=== PATIENT | female | born 1970 ===

== ENCOUNTER 2018-09-08 12:24 | Observation (INO) | payer MEDICAID, OTHER ==
--- NOTE | 2018-09-08 13:29 | ED PDOC ---
Arrival/HPI - General Historian: Patient - History of Present Illness Narrative History of Present Illness (Text): 09/08/18 13:20 Patient is a 47 year old female with a past medical history of diabetes and hypercholesterolemia presenting to the emergency room with chest pain. The pain started 30 minutes prior to arrival. She started to experience palpitations and a pressure-like sensation on the left side of her chest. The chest pain is rated a 10 out of 10 and is still present at time of examination. The pain radiates up the left side of her neck and towards her left shoulder. She has a headache and became nauseous shortly after the onset of chest pain. She also reports suprapubic pain for an unknown duration of time. Denies vaginal discharge, bleeding, dysuria or increased urinary frequency. She has never experienced chest pain like this before and denies any cardiac history in her family. Denies fevers, chills, vomiting, diarrhea, constipation or shortness of breath. Denies tobacco, alcohol or illicit drug use. PMD: Clinic in [place] Time/Duration: Prior to Arrival, 1/2 hour <Louie Hernández - Last Filed: 09/08/18 14:25> <Efra Diaz - Last Filed: 09/08/18 15:46> - General Chief Complaint: Chest Pain Time Seen by Provider: 09/08/18 12:52 Past Medical History - Provider Review Nursing Documentation Reviewed: Yes - Infectious Disease Hx of Infectious Diseases: None - Reproductive Menopause: No <Louie Hernández - Last Filed: 09/08/18 14:25> Family/Social History - Physician Review Nursing Documentation Reviewed: Yes Family/Social History: Unknown Family HX <Louie Hernández - Last Filed: 09/08/18 14:25> Allergies/Home Meds <Louie Hernández - Last Filed: 09/08/18 14:25> <Efra Diaz - Last Filed: 09/08/18 15:46> Allergies/Adverse Reactions: Allergies No Known Allergies Allergy (Verified 09/08/18 13:18) Review of Systems - Physician Review All systems were reviewed & negative as marked: Yes - Review of Systems Constitutional: Normal. absent: Fatigue, Fevers Eyes: Normal. absent: Vision Changes, Photophobia ENT: Normal Respiratory: Normal. absent: SOB Cardiovascular: Chest Pain, Palpitations. absent: Calf Pain, MEZA, Orthopnea, Syncope Gastrointestinal: Abdominal Pain (suprapubic). absent: Constipation, Diarrhea, Nausea, Vomiting Genitourinary Female: Normal. absent: Dysuria, Frequency, Hematuria, Vaginal Bleeding, Vaginal Discharge Musculoskeletal: Normal. absent: Back Pain Skin: Normal. absent: Rash Neurological: Headache. absent: Dizziness Endocrine: Normal Hemo/Lymphatic: Normal. absent: Adenopathy Psychiatric: Normal. absent: Anxiety <Louie Hernández - Last Filed: 09/08/18 14:25> Physical Exam Vital Signs Reviewed: Yes Vital Signs Temp Pulse Resp BP Pulse Ox 09/08/18 13:10 98.3 F 78 18 125/73 98 Temperature: Afebrile Blood Pressure: Normal Pulse: Regular Respiratory Rate: Normal Appearance: Positive for: Well-Appearing, Non-Toxic, Comfortable Pain Distress: None Mental Status: Positive for: Alert and Oriented X 3 - Systems Exam Head: Present: Atraumatic, Normocephalic Extroacular Muscles: Present: EOMI Conjunctiva: Present: Normal Mouth: Present: Moist Mucous Membranes Nose (External): Present: Atraumatic Nose (Internal): Present: No Active Bleeding, Moist Neck: Present: Normal Range of Motion. No: JVD Respiratory/Chest: Present: Clear to Auscultation, Good Air Exchange, Tender to Palpation (left sided). No: Respiratory Distress, Accessory Muscle Use, Wheezes, Rales, Rhonchi Cardiovascular: Present: Regular Rate and Rhythm, Normal S1, S2, Peripheal Pulses Present. No: Murmurs Abdomen: Present: Tenderness (suprapubic). No: Distention, Peritoneal Signs, Rebound, Guarding, McBurney's Point Tender, Rovsing's Sign Present Back: Present: Normal Inspection. No: CVA Tenderness, Midline Tenderness Upper Extremity: Present: Normal Inspection, NORMAL PULSES. No: Cyanosis, Edema Lower Extremity: Present: Normal Inspection, NORMAL PULSES. No: Edema, CALF TENDERNESS Neurological: Present: GCS=15, CN II-XII Intact, Speech Normal Skin: Present: Warm, Dry, Normal Color. No: Rashes Lymphatic: No: Cervical Adenopathy Psychiatric: Present: Alert, Oriented x 3, Normal Insight, Normal Concentration <Louie Hernández - Last Filed: 09/08/18 14:25> Vital Signs Temp Pulse Resp BP Pulse Ox 09/08/18 13:10 98.3 F 78 18 125/73 98 <Efra Diaz - Last Filed: 09/08/18 15:46> Medical Decision Making ED Course and Treatment: 09/08/18 13:34 Patient is a 47 year old female with a past medical history of diabetes and hypercholesterolemia presenting to the emergency room with chest pain and palpations starting 30 minutes prior to arrival. EKG - NSR @90bpm, normal axis, no acute ST segment elevations or depressions. Aspirin 325mg PO given Labs and CXR 09/08/18 14:25 Re-assessed patient. Chest pain is still present but mildly improved with aspirin. Labs are unremarkable. 1st Trop negative. Heart Score - 4 (2 for story, 1 for age and 1 for hx of DM/HLD) = mod risk Called and discussed case with Dr. Jessica Jamison (Hospitalist) in detail. Dr. Jessica Jamison has accepted patient onto hospitalist service for tele observation. Re-evaluation Time: 14:15 Reassessment Condition: Improving,but remains with symptoms - Lab Interpretations I have reviewed the lab results: Yes - RAD Interpretation Narrative RAD Interpretations (Text): 09/08/18 14:28 CXR - no active disease. Radiology Orders: 09/08/18 13:18 CHEST PORTABLE [RAD] Stat Tow Boat Captain: ED Physician - EKG Interpretation EKG Interpretation (Text): 09/08/18 14:29 EKG - NSR @90bpm, normal axis, no acute ST segment elevations or depressions - no prior EKG Interpreted by ED Physician: Yes Type: 12 lead EKG Comparison: No previous EKG avail. - Medication Orders Current Medication Orders: Aspirin (Aspirin) 325 mg PO STAT STA Stop: 09/08/18 13:19 <Louie Hernández - Last Filed: 09/08/18 14:25> - Lab Interpretations Lab Results: 09/08/18 13:45 09/08/18 13:45 Lab Results 09/08/18 13:45: Sodium 140, Potassium 3.9, Chloride 106, Carbon Dioxide 25, Anion Gap 14, BUN 5 L, Creatinine 0.5 L, Est GFR ( Amer) > 60, Est GFR (Non-Af Amer) > 60, Random Glucose 137 H, Calcium 9.5, Magnesium 2.0, Total Bilirubin 0.8, AST 28, ALT 32, Alkaline Phosphatase 102, Troponin I < 0.01, Total Protein 7.7, Albumin 4.3, Globulin 3.3, Albumin/Globulin Ratio 1.3, Lipase 54 09/08/18 13:45: Urine Color Yellow, Urine Appearance Turbid, Urine pH 6.0, Ur Specific [place] <= 1.005, Urine Protein Negative, Urine Glucose (UA) 250 H, Urine Ketones Negative, Urine Blood Large H, Urine Nitrate Negative, Urine Bili sands Negative, Urine Urobilinogen 0.2, Ur Leukocyte Esterase Trace H, Urine RBC 5 - 10, Urine WBC 1 - 3, Ur Epithelial Cells 1 - 3, Urine Bacteria Few 09/08/18 13:45: WBC 9.1, RBC 4.76, Hgb 15.2, Hct 42.6, MCV 89.5, MCH 31.9, MCHC 35.7, RDW 13.2, Plt Count 228, MPV 12.1 H, Gran % 65.9, Lymph % (Auto) 29.1, [place] % (Auto) 3.9, Eos % (Auto) 1.0 L, Baso % (Auto) 0.1, Gran # 5.99, Lymph # (Auto) 2.6, [place] # (Auto) 0.4, Eos # (Auto) 0.1, Baso # (Auto) 0.01 - RAD Interpretation Radiology Orders: 09/08/18 13:18 CHEST PORTABLE [RAD] Stat - Medication Orders Current Medication Orders: Discontinued Medications Aspirin (Aspirin) 325 mg PO STAT STA Stop: 09/08/18 13:19 Last Admin: 09/08/18 13:38 Dose: 325 mg <Efra Diaz - Last Filed: 09/08/18 15:46> - PA / FILLING MIXER / Resident Statement /DO has examined the patient and agrees with the treatment plan. (modrate risk CP pending trop. Neg 1st trop and no stemi on EKG) <Efra Diaz - Last Filed: 09/08/18 15:46> Disposition/Present on Arrival - Present on Arrival Any Indicators Present on Arrival: No History of DVT/PE: No History of Uncontrolled Diabetes: No Urinary Catheter: No History of Decub. Ulcer: No History Surgical Site Infection Following: None - Disposition Have Diagnosis and Disposition been Completed?: Yes Disposition Time: 14:30 Patient Plan: Observation, Telemetry <Louie Hernández - Last Filed: 09/08/18 14:25> <Efra Diaz - Last Filed: 09/08/18 15:46> - Disposition Diagnosis: Chest pain Disposition: HOSPITALIZED Condition: GUARDED Discharge Instructions (ExitCare): Chest Pain (ED) Referrals: PCP,NO [Primary Care Provider] - Follow up with primary Forms: [facility] ([place])
[2018-09-08 13:54] LABS: URINE BILIRUBIN NEGATIVE (NEGATIVE); URINE BLOOD LARGE (NEGATIVE); URINE GLUCOSE (UA) 250 mg/dL (NEGATIVE); URINE LEUKOCYTE ESTERASE TRACE Leu/uL (NEGATIVE); URINE PROTEIN NEGATIVE mg/dL (<30 mg/dL); URINE UROBILINOGEN 0.2 E.U./dL (<1 E.U./dL)
[2018-09-08 13:55] LABS: BASO # 0.01 K/mm3 (0.0-2.0); BASO % 0.1 % (0.0-3.0); EOS # 0.1 (0.0-0.7); GRAN # 5.99 (1.4-6.5); GRAN % 65.9 % (50.0-68.0); HEMOGLOBIN 15.2 g/dL (12.0-16.0); LYMPH # 2.6 (1.2-3.4); LYMPH % 29.1 % (22.0-35.0); MEAN CELL VOLUME 89.5 fl (80.0-105.0); MEAN CORPUSCULAR HEMOGLOBIN 31.9 pg (25.0-35.0); MEAN CORPUSCULAR HGB CONC 35.7 g/dl (31.0-37.0); MEAN PLATELET VOLUME 12.1 fl (7.0-11.0); MONO # 0.4 (0.1-0.6); MONO % 3.9 % (1.0-6.0); RBC 4.76 10^6/uL (3.5-6.1); RED CELL DISTRIBUTION WIDTH 13.2 % (11.5-14.5); WHITE BLOOD COUNT 9.1 10^3/ul (4.5-11.0)
[2018-09-08 13:56] LABS: URINE APPEARANCE TURBID (CLEAR); URINE COLOR YELLOW (YELLOW)
[2018-09-08 13:57] LABS: URINE BACTERIA FEW (NEG)
[2018-09-08 14:03] LABS: ALB/GLOB RATIO 1.3 (1.1-1.8); ALBUMIN 4.3 g/dL (3.0-4.8); ALT/SGPT 32 U/L (7-56); AST/SGOT 28 U/L (14-36); BLOOD UREA NITROGEN 5 mg/dL (7-21); CALCIUM 9.5 mg/dL (8.4-10.5); GFR NON-AFRICAN AMERICAN > 60; LIPASE 54 U/L (23-300)
--- NOTE | 2018-09-08 14:08 | RAD ---
Date of service: 09/08/2018 HISTORY: cp COMPARISON: No prior. FINDINGS: LUNGS: No active pulmonary disease. PLEURA: No significant pleural effusion identified, no pneumothorax apparent. CARDIOVASCULAR: Normal. OSSEOUS STRUCTURES: No significant abnormalities. VISUALIZED UPPER ABDOMEN: Normal. OTHER FINDINGS: None. IMPRESSION: No active disease.
[2018-09-08 14:14] LABS: TROPONIN I < 0.01 ng/mL
--- NOTE | 2018-09-08 15:10 | CARD ---
APPROVED REPORT Date of service: 09/08/2018 EKG Measurement Heart [id number] <Conclusion> Normal sinus rhythm Cannot rule out Anterior infarct, age undetermined Abnormal ECG
[2018-09-08 16:34] LABS: INR 1.02; PARTIAL THROMBOPLASTIN TIME 30.1 Seconds (25.1-36.5); PROTHROMBIN TIME 11.6 SECONDS (9.4-12.5)
--- NOTE | 2018-09-08 16:37 | CP.PCM.HP ---
<TorstenJefe - Last Filed: 09/08/18 16:38> History of Present Illness - History of Present Illness History of Present Illness: IM H&P for Dr Jamison CC: Chest pain x 15 days, new onset left shoulder neck pain today 47yo female with a PMHx of HLD and NIDDM who presented to ED with sudden exacerb ation of Chest pain with associated palpitations. She has had these symptoms for the past 15 days however was previously intermittent, however today it has intensified starting at 10am and became more constant rated at a 8/10. She describes it as substernal left sided CP that radiates to the neck and left arm with an intensity of 8/10. She was in her room resting and has not subsided since then but it has decreased in intensity (10/10 at home). There is nothing that makes it better and stress/anxiety happens to exacerbates it. Patient also described mild epigastric abdominal pain rated 5/10, nonradiating which she attributes to her gastritis. Patient also complains of moderate suprapubic pain and vaginal clot discharge since June, which she is being followed by her obgyn. She denies F/C, MARKS, palpitations, nausea, vomititng, diarrhea, constipation, dysuria, Allergies: NKDA PMHx: gastritis, arthritis, DM Medications: omeprazole, atorvastatin 40mg PO daily, metformin 100mg BID PSurgHx: obgyn related cannot recall exact procedure familyhx: denies Social hx: denies tobacco, alcohol, illicit drug use. Last job was in 2012 at a [employer] PMD: Pharmacy:[facility] on [address] [place] [address] Present on Admission - Present on Admission Any Indicators Present on Admission: No Review of Systems - Review of Systems Review of Systems: As per HPI otherwise negative Past Patient History - Infectious Disease Hx of Infectious Diseases: None - Past Social History Smoking Status: Unknown If Ever Smoked - CARDIAC Hx Cardiac Disorders: No Hx Hypertension: Yes - ENDOCRINE/METABOLIC Hx Diabetes Mellitus Type 2: Yes - GENITOURINARY/GYNECOLOGICAL Hx Genitourinary Disorders: No - PSYCHIATRIC Hx Substance Use: No - ANESTHESIA Hx Anesthesia: No Meds Allergies/Adverse Reactions: Allergies Allergy/AdvReac Type Severity Reaction Status Date / Time No Known Allergies Allergy Verified 09/08/18 13:18 Physical Exam - Constitutional Appears: No Acute Distress - Head Exam Head Exam: ATRAUMATIC, NORMAL INSPECTION, NORMOCEPHALIC - Eye Exam Eye Exam: EOMI, Normal appearance, PERRL Pupil Exam: NORMAL ACCOMODATION, PERRL - ENT Exam ENT Exam: Mucous Membranes Moist, Normal Exam - Neck Exam Neck exam: Positive for: Normal Inspection - Respiratory Exam Respiratory Exam: Chest Wall Tenderness, Clear to Auscultation Bilateral. absent: Wheezes - Cardiovascular Exam Cardiovascular Exam: REGULAR RHYTHM, +S1, +S2. absent: Systolic Murmur - GI/Abdominal Exam GI & Abdominal Exam: Normal Bowel Sounds, Soft, Tenderness (LUQ) - Extremities Exam Extremities exam: Positive for: normal inspection - Neurological Exam Neurological exam: Alert, CN II-XII Intact, Normal Gait, Oriented x3, Reflexes Normal - Psychiatric Exam Psychiatric exam: Normal Affect, Normal Mood - Skin Skin Exam: Dry, Intact, Normal Color, Warm Results - Vital Signs Recent Vital Signs: Last Vital Signs Temp 98.3 F 09/08/18 13:10 Pulse 78 09/08/18 13:10 Resp 18 09/08/18 13:10 BP 125/73 09/08/18 13:10 Pulse Ox 98 09/08/18 13:10 - Labs Result Diagrams: 09/08/18 13:45 09/08/18 13:45 Labs: Laboratory Results - last 24 hr 09/08/18 09/08/18 09/08/18 13:45 13:45 13:45 WBC 9.1 RBC 4.76 Hgb 15.2 Hct 42.6 MCV 89.5 MCH 31.9 MCHC 35.7 RDW 13.2 Plt Count 228 MPV 12.1 H Gran % 65.9 Lymph % (Auto) 29.1 [place] % (Auto) 3.9 Eos % (Auto) 1.0 L Baso % (Auto) 0.1 Gran # 5.99 Lymph # (Auto) 2.6 [place] # (Auto) 0.4 Eos # (Auto) 0.1 Baso # (Auto) 0.01 Sodium 140 Potassium 3.9 Chloride 106 Carbon Dioxide 25 Anion Gap 14 BUN 5 L Creatinine 0.5 L Est GFR ( Amer) > 60 Est GFR (Non-Af Amer) > 60 Random Glucose 137 H Calcium 9.5 Magnesium 2.0 Total Bilirubin 0.8 AST 28 ALT 32 Alkaline Phosphatase 102 Troponin I < 0.01 Total Protein 7.7 Albumin 4.3 Globulin 3.3 Albumin/Globulin Ratio 1.3 Lipase 54 Urine Color Yellow Urine Appearance Turbid Urine pH 6.0 Ur Specific [place] <= 1.005 Urine Protein Negative Urine Glucose (UA) 250 H Urine Ketones Negative Urine Blood Large H Urine Nitrate Negative Urine Bilirubin Negative Urine Urobilinogen 0.2 Ur Leukocyte Esterase Trace H Urine RBC 5 - 10 Urine WBC 1 - 3 Ur Epithelial Cells 1 - 3 Urine Bacteria Few Assessment & Plan - Assessment and Plan (Free Text) Assessment: 47yo female with a PMHx of HLD and NIDDM who presented to ED with sudden exacerbation of Chest pain with associated palpitations admitted to tele to rule out ACS. Chest Pains r/o ACS - Trend trops, negative x1 - trend ekg - tsh - monitor hemodynamics, normotensive currently - Cardiology Consult, Dr. Olivas - Lipid profile - fu A1c Abdominal Pain - CT abd - Heart healthy diet - PPI - HLD - fu lipid profile - lipitor 40 mg home med continued NIDDM - metformin 100 BID hold - fu a1c - accuchecks - low sliding scale GI/DVT ppx Seen reviewed and discussed with attending, Dr. Jamison <Virginia Jamison R - Last Filed: 09/08/18 17:34> Results - Vital Signs Recent Vital Signs: Last Vital Signs Temp 98.3 F 09/08/18 13:10 Pulse 78 09/08/18 13:10 Resp 18 09/08/18 13:10 BP 125/73 09/08/18 13:10 Pulse Ox 98 09/08/18 13:10 - Labs Result Diagrams: 09/08/18 13:45 09/08/18 13:45 Labs: Laboratory Results - last 24 hr 09/08/18 09/08/18 09/08/18 13:45 13:45 13:45 WBC 9.1 RBC 4.76 Hgb 15.2 Hct 42.6 MCV 89.5 MCH 31.9 MCHC 35.7 RDW 13.2 Plt Count 228 MPV 12.1 H Gran % 65.9 Lymph % (Auto) 29.1 [place] % (Auto) 3.9 Eos % (Auto) 1.0 L Baso % (Auto) 0.1 Gran # 5.99 Lymph # (Auto) 2.6 [place] # (Auto) 0.4 Eos # (Auto) 0.1 Baso # (Auto) 0.01 PT INR APTT Sodium 140 Potassium 3.9 Chloride 106 Carbon Dioxide 25 Anion Gap 14 BUN 5 L Creatinine 0.5 L Est GFR ( Amer) > 60 Est GFR (Non-Af Amer) > 60 Random Glucose 137 H Calcium 9.5 Phosphorus Magnesium 2.0 Total Bilirubin 0.8 AST 28 ALT 32 Alkaline Phosphatase 102 Troponin I < 0.01 Total Protein 7.7 Albumin 4.3 Globulin 3.3 Albumin/Globulin Ratio 1.3 Triglycerides Cholesterol LDL Cholesterol Direct HDL Cholesterol Lipase 54 TSH 3rd Generation Urine Color Yellow Urine Appearance Turbid Urine pH 6.0 Ur Specific [place] <= 1.005 Urine Protein Negative Urine Glucose (UA) 250 H Urine Ketones Negative Urine Blood Large H Urine Nitrate Negative Urine Bilirubin Negative Urine Urobilinogen 0.2 Ur Leukocyte Esterase Trace H Urine RBC 5 - 10 Urine WBC 1 - 3 Ur Epithelial Cells 1 - 3 Urine Bacteria Few 09/08/18 09/08/18 09/08/18 13:45 13:45 13:45 WBC RBC Hgb Hct MCV MCH MCHC RDW Plt Count MPV Gran % Lymph % (Auto) [place] % (Auto) Eos % (Auto) Baso % (Auto) Gran # Lymph # (Auto) [place] # (Auto) Eos # (Auto) Baso # (Auto) PT 11.6 INR 1.02 APTT 30.1 Sodium Potassium Chloride Carbon Dioxide Anion Gap BUN Creatinine Est GFR ( Amer) Est GFR (Non-Af Amer) Random Glucose Calcium Phosphorus 4.6 H Magnesium Total Bilirubin AST ALT Alkaline Phosphatase Troponin I Total Protein Albumin Globulin Albumin/Globulin Ratio Triglycerides 438 H Cholesterol 174 LDL Cholesterol Direct 67 HDL Cholesterol 41 Lipase TSH 3rd Generation 1.50 Urine Color Urine Appearance Urine pH Ur Specific [place] Urine Protein Urine Glucose (UA) Urine Ketones Urine Blood Urine Nitrate Urine Bilirubin Urine Urobilinogen Ur Leukocyte Esterase Urine RBC Urine WBC Ur Epithelial Cells Urine Bacteria Attending/Attestation - Attestation I have personally seen and examined this patient.: Yes I have fully participated in the care of the patient.: Yes I have reviewed all pertinent clinical information: Yes Notes (Text): Patient seen and examined by me with resident at 3:30PM with resident. Case including HPI, physical exam, and assessment and plan discussed with resident. Agree with above with following additions/corrections. Patient is Citizen Of [place]-speaking. Trained weight control engineer used. Patient is a 47-year-old female past medical history significant for type 2 diabetes, gastritis, hyperlipidemia, and dysfunctional uterine bleeding that presents to the emergency room with chest pain. Patient states that she has been having chest pain for approximately 15 days now. She states that the pain was intermittent. Pain and left-sided chest. Patient states that today the pain became constant and radiated into her left arm and neck. Patient states that the pain is worsened when she pushes on the area. No associated shortness of breath. No diaphoresis. Patient also complains of upper abdominal pain. She states that it is always there and she has a history of gastritis. She states she was supposed to follow-up with her machine hose cutter in July but was unable to do so. Patient states that she always has nausea after eating as well. She states that she has had some "soft and mucousy"bowel movement was the past few days. She states that she has some abdominal cramping prior to having bowel movements. Last bowel movement was this morning. No headaches or change in vision. Patient states he sometimes has dizziness when she sits up or stands up. No fevers or chills. No vomiting. No dysuria. Patient states that she has been having constant vaginal bleeding for the past 3 months and is following with her chemical laboratory chief for this. 12 point review of systems reviewed by me. Please see above HPI. All other systems negative. Family history. Mother of "ulcer". Father alive and healthy. Physical exam: Gen: Awake and alert lying in bed in no acute distress HEENT: Normocephalic, atraumatic. Extraocular muscles intact, pupils equal reactive. No scleral icterus. No pharyngeal erythema or exudate appreciated. Oropharynx is pink and moist. Neck is supple. Hearing grossly intact. Nose ext ernally unremarkable. Cardiovascular: Normal rhythm. Normal S1, S2. No murmurs, rubs, or gallops maksim reciated Pulmonary: Normal respiratory effort. No rhonchi, rales, or wheezing appreciated. Gastrointestinal: Soft, nondistended. Positive generalized mild tenderness with deep palpation. Positive bowel sounds all 4 quadrants, no guarding. Musculoskeletal: Moves all extremities. No calf tenderness. No edema appreciated. Positive left anterior chest wall tenderness with palpation. Central nervous system: AAO x 3. CN2-12 grossly intact. 5 out of 5 muscle strength all extremities. Dermatologic: Skin warm and dry. Assessment and plan: Patient is a 47-year-old female past medical history signi ficant for type 2 diabetes, gastritis, hyperlipidemia, and dysfunctional uterine bleeding that presents to the emergency room with chest pain. 1. Chest pain. Likely musculoskeletal. Will rule out ACS. Follow up serial troponins. Follow-up hemoglobin A1c and TSH. Consult cardiology, follow-up recommendations. Monitor on telemetry. Continue home Lipitor. Will start on aspirin. 2. Type 2 diabetes. Patient takes metformin at home. Started on insulin sliding scale. Follow up hemoglobin A1c. Monitor Accu-Cheks. 3. Hyperlipidemia. Continue atorvastatin. 4. GERD. Continue Protonix. 5. Abdominal pain. Likely Secondary to history of gastritis. Continue Protonix. We will check CT abdomen and pelvis. 6. GI and DVT prophylaxis. Protonix and subcutaneous heparin. 7. Patient is a full code Case was discussed in detail with patient and Citizen Of [place] regarding current diagnosis and treatment plan. All questions answered.
[2018-09-08] MEDS: Insulin Lispro (humaLOG) LOW Coverage SC SCH ×2 (17:55→22:05)
--- NOTE | 2018-09-08 18:10 | CT ---
Date of service: 2018-09-08 17:30:57 PROCEDURE: CT Abdomen without intravenous contrast HISTORY: LUQ abdominal pain/loose stools COMPARISON: Not available TECHNIQUE: Axial images of the abdomen from lung bases to iliac crest without intravenous contrast enhancement. Coronal and sagittal reformats generated. Radiation dose: Total exam DLP = mGy-cm. This CT exam was performed using one or more of the following dose reduction techniques: Automated exposure control, adjustment of the mA and/or kV according to patient size, and/or use of iterative reconstruction technique. Contrast dose: 0 Radiation dose: Total exam DLP = 252.42 mGy-cm. FINDINGS: LOWER THORAX: No infiltrate. 5 mm perifissural nodule along inferior aspect of the minor fissure, likely an intrapulmonary lymph node. No follow-up required. No other mass identified. LIVER: Unremarkable. No gross lesion or ductal dilatation. GALLBLADDER AND BILE DUCTS: Unremarkable. PANCREAS: Unremarkable. No gross lesion or ductal dilatation. SPLEEN: Unremarkable. ADRENALS: Unremarkable. No mass. KIDNEYS AND URETERS: Unremarkable. No hydronephrosis. No solid mass. VASCULATURE: Unremarkable. No aortic aneurysm. BOWEL: Unremarkable. No obstruction. No gross mural thickening. APPENDIX: Visualized portions of the appendix are unremarkable. Only partially included in this examination. PERITONEUM: Unremarkable. No free fluid. No free air. LYMPH NODES: Unremarkable. No enlarged lymph nodes. BONES: No acute fracture. OTHER FINDINGS: None. IMPRESSION: No significant abnormality. Incidental perifissural 5 mm nodule along minor fissure. No follow-up required. Otherwise unremarkable.
[2018-09-08 22:21] VITALS: BMI 24.0
[2018-09-08] MEDS ORDERED: Pneumococcal 23-Valent Vaccine IM ONE (22:21)
[2018-09-08] MEDS ORDERED: Influenza Vaccine 60 mcg/0.5 mL SYR (4YR UP) IM ONE (22:21)
[2018-09-09] MEDS: Insulin Lispro (humaLOG) LOW Coverage SC SCH ×4 (08:26→22:24)
[2018-09-09 08:29] LABS: BASO # 0.02 K/mm3 (0.0-2.0); BASO % 0.2 % (0.0-3.0); EOS # 0.2 (0.0-0.7); EOS % 2.3 % (1.5-5.0); GRAN # 3.39 (1.4-6.5); GRAN % 41.9 % (50.0-68.0); HEMOGLOBIN 14.8 g/dL (12.0-16.0); LYMPH # 4.1 (1.2-3.4); MEAN CELL VOLUME 89.9 fl (80.0-105.0); MEAN CORPUSCULAR HEMOGLOBIN 31.8 pg (25.0-35.0); MEAN CORPUSCULAR HGB CONC 35.4 g/dl (31.0-37.0); MEAN PLATELET VOLUME 12.7 fl (7.0-11.0); MONO # 0.4 (0.1-0.6); MONO % 4.6 % (1.0-6.0); RBC 4.65 10^6/uL (3.5-6.1); RED CELL DISTRIBUTION WIDTH 13.7 % (11.5-14.5); WHITE BLOOD COUNT 8.1 10^3/ul (4.5-11.0)
[2018-09-09 08:54] LABS: ALB/GLOB RATIO 1.2 (1.1-1.8); ALBUMIN 3.9 g/dL (3.0-4.8); ALT/SGPT 33 U/L (7-56); AST/SGOT 27 U/L (14-36); BLOOD UREA NITROGEN 10 mg/dL (7-21); CALCIUM 9.3 mg/dL (8.4-10.5); GFR NON-AFRICAN AMERICAN > 60
[2018-09-09] MEDS: Pantoprazole 40 mg EC Tab PO SCH (09:19)
--- NOTE | 2018-09-09 11:37 | CARD ---
APPROVED REPORT Date of service: 09/09/2018 EKG Measurement Heart [id number] <Conclusion> Normal sinus rhythm Normal ECG
--- NOTE | 2018-09-09 16:43 | CP.PCM.PN ---
Subjective - Date & Time of Evaluation Date of Evaluation: 09/09/18 Time of Evaluation: 16:42 - Subjective Subjective: PGY-[address] Benitez No acute events noted overnight. Patient stated her chest pain has improved. She is now tender to palpation only. Otherwise did not offer any complaints. She was told about her diabetes and to watch her sugars. Objective - Vital Signs/Intake and Output Vital Signs (last 24 hours): Temp Pulse Resp BP Pulse Ox 98.3 F 90 20 99/58 L 96 09/09/18 06:00 09/09/18 14:00 09/09/18 06:00 09/09/18 06:00 09/09/18 06:00 Intake and Output: 09/09/18 09/09/18 06:59 18:59 Intake Total 240 Balance 240 - Medications Medications: Current Medications Aspirin (Ecotrin) 81 mg PO DAILY [facility] Last Admin: 09/09/18 09:19 Dose: 81 mg Atorvastatin Calcium (Lipitor) 40 mg PO DAILY [facility] Last Admin: 09/09/18 09:19 Dose: 40 mg Heparin Sodium (Porcine) (Heparin) 5,000 units SC Q8H [facility]; Protocol Last Admin: 09/09/18 08:29 Dose: 5,000 units Ibuprofen (Motrin Tab) 400 mg PO Q6H PRN PRN Reason: Pain, moderate (4-7) Last Admin: 09/08/18 20:27 Dose: 400 mg Insulin Human Lispro (Humalog Low) 0 units SC ACHS [facility]; Protocol Last Admin: 09/09/18 12:14 Dose: 2 unit Pantoprazole Sodium (Protonix Ec Tab) 40 mg PO DAILY [facility] Last Admin: 09/09/18 09:19 Dose: 40 mg - Labs Labs: 09/09/18 08:00 09/09/18 08:00 PT 11.6 SECONDS (9.4-12.5) 09/08/18 13:45 INR 1.02 09/08/18 13:45 APTT 30.1 Seconds (25.1-36.5) 09/08/18 13:45 - Additional Findings Additional findings: - Constitutional Appears: No Acute Distress - Head Exam Head Exam: ATRAUMATIC, NORMAL INSPECTION, NORMOCEPHALIC - Eye Exam Eye Exam: EOMI, Normal appearance, PERRL Pupil Exam: NORMAL ACCOMODATION, PERRL - ENT Exam ENT Exam: Mucous Membranes Moist, Normal Exam - Neck Exam Neck exam: Positive for: Normal Inspection - Respiratory Exam Respiratory Exam: Chest Wall Tenderness, Clear to Auscultation Bilateral. absent: Wheezes - Cardiovascular Exam Cardiovascular Exam: REGULAR RHYTHM, +S1, +S2. absent: Systolic Murmur - GI/Abdominal Exam GI & Abdominal Exam: Normal Bowel Sounds, Soft, Tenderness (LUQ) - Extremities Exam Extremities exam: Positive for: normal inspection - Neurological Exam Neurological exam: Alert, CN II-XII Intact, Normal Gait, Oriented x3, Reflexes Normal - Psychiatric Exam Psychiatric exam: Normal Affect, Normal Mood - Skin Skin Exam: Dry, Intact, Normal Color, Warm Assessment and Plan - Assessment and Plan (Free Text) Plan: 47yo female with a PMHx of HLD and NIDDM who presented to ED with sudden exacerbation of Chest pain with associated palpitations admitted to tele to rule out ACS. Chest Pains r/o ACS - likely musculoskelatal - trops, negative x3 - ekg nsr, normal rate - tsh normal - monitor hemodynamics, normotensive currently - Cardiology Consult, Dr. Olivas - Lipid profile normal with exception of triglycerides 438 - ibuprofen 400mg po q6h prn for pain Abdominal Pain - CT abd w/o contrast * no significant abnormality, incidental perifissural 5mm nodule along minor fissure - Heart healthy diet - PPI - protonix 40mg po qd HLD - Lipid profile normal with exception of triglycerides 438 - lipitor 40 mg home med continued NIDDM - metformin 100 BID hold - A1c 7.5 - accuchecks - low sliding scale GI/DVT ppx Seen reviewed and discussed with attending, Dr. Benitez
[2018-09-09] MEDS ORDERED: Potassium Chloride 20 mEq ER Tab PO ONE (17:49)
[2018-09-10] MEDS: Insulin Lispro (humaLOG) LOW Coverage SC SCH ×2 (08:08→12:23)
[2018-09-10 08:34] LABS: BASO # 0.02 K/mm3 (0.0-2.0); BASO % 0.3 % (0.0-3.0); EOS # 0.1 (0.0-0.7); EOS % 1.8 % (1.5-5.0); GRAN # 3.5 (1.4-6.5); GRAN % 45.2 % (50.0-68.0); HEMOGLOBIN 14.7 g/dL (12.0-16.0); LYMPH # 3.7 (1.2-3.4); LYMPH % 47.8 % (22.0-35.0); MEAN CORPUSCULAR HEMOGLOBIN 31.2 pg (25.0-35.0); MEAN CORPUSCULAR HGB CONC 34.7 g/dl (31.0-37.0); MEAN PLATELET VOLUME 12.5 fl (7.0-11.0); MONO # 0.4 (0.1-0.6); MONO % 4.9 % (1.0-6.0); RBC 4.71 10^6/uL (3.5-6.1); RED CELL DISTRIBUTION WIDTH 13.4 % (11.5-14.5); WHITE BLOOD COUNT 7.7 10^3/ul (4.5-11.0)
[2018-09-10 08:44] VITALS: BP 98/58; RESP 20; TEMP 98.2; O2SAT 98
[2018-09-10 09:03] LABS: ALB/GLOB RATIO 1.3 (1.1-1.8); ALT/SGPT 33 U/L (7-56); AST/SGOT 24 U/L (14-36); BLOOD UREA NITROGEN 13 mg/dL (7-21); CALCIUM 9.1 mg/dL (8.4-10.5); GFR NON-AFRICAN AMERICAN > 60
[2018-09-10] MEDS: Pantoprazole 40 mg EC Tab PO SCH (09:09)
[2018-09-10 10:34] VITALS: PULSE 79
--- NOTE | 2018-09-10 22:05 | CP.PCM.DIS ---
Provider - Provider Date of Admission: 09/08/18 14:25 Attending physician: Virginia Jamison DO Primary care physician: NO PRIMARY CARE PROVIDER Consults: Cardio: Dr. Olivas Time Spent in preparation of Discharge (in minutes): 49 Diagnosis - Discharge Diagnosis (1) UTI (urinary tract infection) Status: Acute Hospital Course - Lab Results Lab Results: Micro Results 09/08/18 16:08 Urine,Clean Catch Urine Culture - Final Escherichia Coli Beta Hemolytic Strep Group B Most Recent Lab Values WBC 7.7 10^3/ul (4.5-11.0) 09/10/18 07:00 RBC 4.71 10^6/uL (3.5-6.1) 09/10/18 07:00 Hgb 14.7 g/dL (12.0-16.0) 09/10/18 07:00 Hct 42.4 % (36.0-48.0) 09/10/18 07:00 MCV 90.0 fl (80.0-105.0) 09/10/18 07:00 MCH 31.2 pg (25.0-35.0) 09/10/18 07:00 MCHC 34.7 g/dl (31.0-37.0) 09/10/18 07:00 RDW 13.4 % (11.5-14.5) 09/10/18 07:00 Plt Count 226 10^3/uL (120.0-450.0) 09/10/18 07:00 MPV 12.5 fl (7.0-11.0) H 09/10/18 07:00 Gran % 45.2 % (50.0-68.0) L 09/10/18 07:00 Lymph % (Auto) 47.8 % (22.0-35.0) H 09/10/18 07:00 Bryan % (Auto) 4.9 % (1.0-6.0) 09/10/18 07:00 Eos % (Auto) 1.8 % (1.5-5.0) 09/10/18 07:00 Baso % (Auto) 0.3 % (0.0-3.0) 09/10/18 07:00 Gran # 3.50 (1.4-6.5) 09/10/18 07:00 Lymph # (Auto) 3.7 (1.2-3.4) H 09/10/18 07:00 Bryan # (Auto) 0.4 (0.1-0.6) 09/10/18 07:00 Eos # (Auto) 0.1 (0.0-0.7) 09/10/18 07:00 Baso # (Auto) 0.02 K/mm3 (0.0-2.0) 09/10/18 07:00 PT 11.6 SECONDS (9.4-12.5) 09/08/18 13:45 INR 1.02 09/08/18 13:45 APTT 30.1 Seconds (25.1-36.5) 09/08/18 13:45 Sodium 139 mmol/L (132-148) 09/10/18 07:00 Potassium 3.9 mmol/L (3.6-5.0) 09/10/18 07:00 Chloride 106 mmol/L (98-107) 09/10/18 07:00 Carbon Dioxide 24 mmol/L (21-33) 09/10/18 07:00 Anion Gap 13 (10-20) 09/10/18 07:00 BUN 13 mg/dL (7-21) 09/10/18 07:00 Creatinine 0.6 mg/dl (0.7-1.2) L 09/10/18 07:00 Est GFR ( Amer) > 60 09/10/18 07:00 Est GFR (Non-Af Amer) > 60 09/10/18 07:00 POC Glucose (mg/dL) 196 mg/dL (65-110) H 09/10/18 11:33 Random Glucose 168 mg/dL (70-110) H 09/10/18 07:00 Hemoglobin A1c 7.5 % (4.2-6.5) H 09/08/18 13:45 Calcium 9.1 mg/dL (8.4-10.5) 09/10/18 07:00 Phosphorus 4.6 mg/dL (2.5-4.5) H 09/08/18 13:45 Magnesium 2.0 mg/dL (1.7-2.2) 09/08/18 13:45 Total Bilirubin 1.0 mg/dL (0.2-1.3) 09/10/18 07:00 AST 24 U/L (14-36) 09/10/18 07:00 ALT 33 U/L (7-56) 09/10/18 07:00 Alkaline Phosphatase 91 U/L (38-126) 09/10/18 07:00 Troponin I < 0.01 ng/mL 09/09/18 02:25 Total Protein 7.0 g/dL (5.8-8.3) 09/10/18 07:00 Albumin 4.0 g/dL (3.0-4.8) 09/10/18 07:00 Globulin 3.1 gm/dL 09/10/18 07:00 Albumin/Globulin Ratio 1.3 (1.1-1.8) 09/10/18 07:00 Triglycerides 438 mg/dL (35-160) H 09/08/18 13:45 Cholesterol 174 mg/dL (130-200) 09/08/18 13:45 LDL Cholesterol Direct 67 mg/dL (0-129) 09/08/18 13:45 HDL Cholesterol 41 mg/dL (29-60) 09/08/18 13:45 Lipase 54 U/L (23-300) 09/08/18 13:45 TSH 3rd Generation 1.50 mIU/mL (0.46-4.68) 09/08/18 13:45 Urine Color Yellow (YELLOW) 09/08/18 13:45 Urine Appearance Turbid (CLEAR) 09/08/18 13:45 Urine pH 6.0 (4.7-8.0) 09/08/18 13:45 Ur Specific Gregory <= 1.005 (1.005-1.035) 09/08/18 13:45 Urine Protein Negative mg/dL (<30 mg/dL) 09/08/18 13:45 Urine Glucose (UA) 250 mg/dL (NEGATIVE) H 09/08/18 13:45 Urine Ketones Negative mg/dL (NEGATIVE) 09/08/18 13:45 Urine Blood Large (NEGATIVE) H 09/08/18 13:45 Urine Nitrate Negative (NEGATIVE) 09/08/18 13:45 Urine Bilirubin Negative (NEGATIVE) 09/08/18 13:45 Urine Urobilinogen 0.2 E.U./dL (<1 E.U./dL) 09/08/18 13:45 Ur Leukocyte Esterase Trace Erickson/uL (NEGATIVE) H 09/08/18 13:45 Urine RBC 5 - 10 /hpf (0-2) 09/08/18 13:45 Urine WBC 1 - 3 /hpf (0-6) 09/08/18 13:45 Ur Epithelial Cells 1 - 3 /hpf (0-5) 09/08/18 13:45 Urine Bacteria Few (NEG) 09/08/18 13:45 - Hospital Course Hospital Course: 47 year old female with a past medical history significant for HLD and NIDDM2 who presented with transient atypical chest pain with associated palpitations. A Chest X-ray showed NAD. An EKG showed NSR with normal rate. Three serial troponins were negative. TSH was WNL. A lipid panel revealed isolated hypertriglyceridemia of 438. Cardiology was consulted and stated that there is no evidence for ACS. Patient also complained of abdominal pain during admission. A CT Abdomen/Pelvis showed no significant abnormality but an incidental perifissural 5mm nodule along minor fissure. Her home Lipitor was started. She was started on ISS-low and accuchecks ACHS. An A1c was found to be 7.5%. A urine culture grew significant colonies of E. Coli that was sensitive to Ciprofloxacin. Patient remained HDS and was discharged home on 09/10/18 with instructions and prescriptions as written below. - Date & Time of H&P Date of H&P: 09/08/18 Time of H&P: 16:31 Discharge Exam - Head Exam Head Exam: ATRAUMATIC, NORMAL INSPECTION, NORMOCEPHALIC - Eye Exam Eye Exam: EOMI, Normal appearance, PERRL Pupil Exam: NORMAL ACCOMODATION - ENT Exam ENT Exam: Normal Exam - Neck Exam Neck exam: Normal Inspection - Respiratory Exam Respiratory Exam: Clear to PA & Lateral, NORMAL BREATHING PATTERN, UNREMARKABLE - Cardiovascular Exam Cardiovascular Exam: REGULAR RHYTHM, RRR, +S1, +S2 - GI/Abdominal Exam GI & Abdominal Exam: Normal Bowel Sounds, Unremarkable - Extremities Exam Extremities exam: normal inspection - Back Exam Back exam: NORMAL INSPECTION - Neurological Exam Neurological exam: Alert, Normal Gait, Oriented x3 - Psychiatric Exam Psychiatric exam: Normal Affect, Normal Mood - Skin Skin Exam: Dry, Intact, Normal Color, Warm Discharge Plan - Discharge Medications Prescriptions: Aspirin [Ecotrin] 81 mg PO DAILY #14 tabec Ciprofloxacin [Cipro] 500 mg PO Q12 #14 tab - Follow Up Plan Condition: GUARDED Disposition: HOME/ ROUTINE Instructions: Ciprofloxacin (Systemic), Urinary Tract Infection, Adult (DC), Chest Pain (DC), Chest Pain (GEN) Additional Instructions: Please follow up with your primary care doctor, Dr. Segura, within 3-5 days of discharge. Please discuss with him all medical issues addressed during this visit and any new medications you have been started on. Please follow up with a facility manager of your choice within two weeks. Dr. Olivas was consulted for you during your admission and his contact information has been provided in this paperwork for you to contact. You may also call your insurance company to obtain a list of cardiologists within the area that are in network for you. Please continue [facility] follow up as already scheduled. You will be sent home with two new medications: 1. Ciprofloxacin 500mg (antibiotic for urine infection): Please take this medication with food twice a day for the next seven days 2. Aspirin 81mg (antiplatelet medication): Please take this medication daily until you are told by a doctor that you should stop by a doctor Should your symptoms return, please be seen at the nearest emergency room for further evaluation. Referrals: Jt Olivas MD [Staff Provider] -
--- NOTE | 2018-09-10 22:12 | CON ---
DATE OF CONSULTATION: 09/10/2018 REFERRING PROVIDER: Jt Olivas MD HISTORY: The patient is a 47-year-old woman with no previous cardiac history, who presented with transient focal chest discomfort. She was admitted to rule out myocardial infarction. EKG is within normal limits. Her troponins are negative x3. She suffers from hypertension, diabetes mellitus and hypercholesterolemia. SOCIAL HISTORY: Does not smoke. REVIEW OF SYSTEMS: A 14-point review of systems is reviewed in detail. No cardiac symptoms are noted. PHYSICAL EXAMINATION: VITAL SIGNS: Stable. NECK: Negative JVD. LUNGS: Without rales. HEART: S1, S2. EXTREMITIES: Without edema. LABORATORIES: Troponins are negative x3. IMPRESSION: 1. Transient atypical chest pain. 2. No evidence for acute coronary syndrome. 3. Diabetes mellitus. 4. Hypercholesterolemia. Given these findings, there is no evidence for acute coronary syndrome. Can DC telemetry today. Follow up with the internal medicine team for further care. Esteban Smith MD
== END 2018-09-10 16:41 | disposition home or self-care (01) ==
LOC: ED 12:24 → MERGE 14:25 → ERH 14:25 → 3RNO 18:36
PROVIDERS: ADMIT Hospitalist; ATTEND Hospitalist
DX: R07.89 Other chest pain (principal); N39.0 Urinary tract infection, site not specified; B96.20 Unspecified Escherichia coli [E. coli] as the cause of diseases classified elsewhere; E11.9 Type 2 diabetes mellitus without complications; I10 Essential (primary) hypertension; E78.00 Pure hypercholesterolemia, unspecified; E78.5 Hyperlipidemia, unspecified; N93.8 Other specified abnormal uterine and vaginal bleeding; K29.70 Gastritis, unspecified, without bleeding; Z79.84 Long term (current) use of oral hypoglycemic drugs; K21.9 Gastro-esophageal reflux disease without esophagitis
CPT/HCPCS: 36415; 71045; 74150; 80053; 80061; 81001; 82948; 83036; 83690; 83735; 84100; 84443; 84484; 85025; 85610; 85730; 87086; 87181; 93005; 96372; 99285; G0378; J1644

== ENCOUNTER 2018-12-17 18:13 | Emergency (ER) | payer MEDICAID, OTHER ==
[2018-12-17 18:17] VITALS: BMI 29.0
[2018-12-17 18:18] VITALS: RESP 18
[2018-12-17 18:43] LABS: URINE BILIRUBIN NEGATIVE (NEGATIVE); URINE BLOOD LARGE (NEGATIVE); URINE GLUCOSE (UA) 500 mg/dL (NEGATIVE); URINE LEUKOCYTE ESTERASE LARGE Leu/uL (NEGATIVE); URINE PROTEIN NEGATIVE mg/dL (<30 mg/dL); URINE UROBILINOGEN 0.2 E.U./dL (<1 E.U./dL)
[2018-12-17 19:08] LABS: URINE APPEARANCE CLOUDY (CLEAR); URINE COLOR YELLOW (YELLOW)
[2018-12-17 19:11] LABS: URINE BACTERIA MOD /hpf; URINE WBC 25 - 30 /hpf (0-6)
[2018-12-17] MEDS ORDERED: cefTRIAXone (Rocephin) 250 mg Inj IM STA (21:00)
[2018-12-17] MEDS ORDERED: Lidocaine 1% Inj (20ml) ONE (21:12)
--- NOTE | 2018-12-17 21:12 | ED PDOC ---
Arrival/HPI - General Chief Complaint: Female Genitourinary Time Seen by Provider: 12/17/18 18:20 Historian: Patient, Cigar Brander (Nurse Josephine) - History of Present Illness Narrative History of Present Illness (Text): 12/17/18 22:37 Gema Chino is a 47 year old female, whose past medical history includes hypertension, who presents complaining of dysuria, urinary frequency, suprapubic discomfort, and bilateral flank pain for 1 day. Patient states she has UTIs in the past and this feels similar. Patient reports associated intermittent yellow vaginal discharge without vaginal itching. Patient states there is no specific concern for STI, but after discussion, would like to be tested and treated today. Patient denies any fever, chills, nausea, vomiting, dizziness, headache, diarrhea, chest pain, SOB, or any other complaints. Symptom Onset: Gradual Symptom Course: Unchanged Activities at Onset: Light Context: Home Past Medical History - Provider Review Nursing Documentation Reviewed: Yes - Infectious Disease Hx of Infectious Diseases: None - Tetanus Immunization Tetanus Immunization: Unknown - Past Medical History Past Medical History: No Previous - Cardiac Hx Cardiac Disorders: No Hx Hypertension: Yes - Pulmonary Hx Respiratory Disorders: No - Neurological Hx Neurological Disorder: No - HEENT Hx HEENT Disorder: No - Renal Hx Renal Disorder: No - Endocrine/Metabolic Hx Endocrine Disorders: (told in her country that she had elevated blood sugar) Hx Diabetes Mellitus Type 2: Yes - Hematological/Oncological Hx Blood Disorders: No - Integumentary Hx Dermatological Disorder: No - Musculoskeletal/Rheumatological Hx Arthritis: Yes (RA, Degenerative spondylosis) - Gastrointestinal Hx Gastrointestinal Disorders: No - Genitourinary/Gynecological Hx Genitourinary Disorders: No - Psychiatric Hx Psychophysiologic Disorder: Yes Hx Substance Use: No - Past Surgical History Past Surgical History: No Previous - Surgical History Hx Tubal Ligation: Yes - Anesthesia Hx Anesthesia: No - Suicidal Assessment Feels Threatened In Home Enviroment: No Family/Social History - Physician Review Nursing Documentation Reviewed: Yes Family/Social History: Unknown Family HX Smoking Status: Never Smoked Hx Alcohol Use: No Hx Substance Use: No Hx Substance Use Treatment: No Allergies/Home Meds Allergies/Adverse Reactions: Allergies No Known Allergies Allergy (Verified 12/17/18 18:16) Home Medications: Home Meds Medication Instructions Recorded Confirmed Cholecalciferol (Vitamin D3) [D3 2,000 unit PO DAILY 09/14/16 09/14/16 Dots] Folic Acid 1 mg PO DAILY 08/11/16 08/11/16 Meloxicam [Mobic] 15 mg PO DAILY 08/11/16 08/11/16 Methotrexate 2.5 mg PO WED 08/11/16 08/11/16 [place]-3 Fatty Acids [[place]-3] 1,000 mg PO DAILY 08/11/16 08/11/16 Omeprazole 40 mg PO DAILY 08/11/16 08/11/16 metFORMIN [glucOPHAGE] 500 mg PO DAILY 07/24/18 07/24/18 Atorvastatin [Lipitor] 40 mg PO DAILY 09/08/18 09/08/18 MetFORMIN [glucoPHAGE] 1,000 mg PO BID 09/08/18 09/08/18 Review of Systems - Physician Review All systems were reviewed & negative as marked: Yes - Review of Systems Constitutional: Normal. absent: Fatigue, Fevers Eyes: Normal. absent: Vision Changes ENT: Normal. absent: Sore Throat, Sinus Congestion Respiratory: Normal. absent: SOB, Cough Cardiovascular: Normal. absent: Chest Pain, Palpitations, Syncope Gastrointestinal: Abdominal Pain (suprapubic discomfort). absent: Nausea, Vomiting Genitourinary Female: Dysuria, Frequency Musculoskeletal: Back Pain. absent: Normal Skin: Normal. absent: Rash Neurological: Normal. absent: Headache, Dizziness Endocrine: Normal Hemo/Lymphatic: Normal Psychiatric: Normal Physical Exam Vital Signs Reviewed: Yes Vital Signs Temp Pulse Resp BP Pulse Ox 12/17/18 20:13 86 18 126/80 97 12/17/18 18:17 98.4 F 93 H 18 131/82 97 Temperature: Afebrile Blood Pressure: Normal Pulse: Regular Respiratory Rate: Normal Appearance: Positive for: Well-Appearing, Non-Toxic, Comfortable Pain Distress: None Mental Status: Positive for: Alert and Oriented X 3 - Systems Exam Head: Present: Atraumatic, Normocephalic Pupils: Present: PERRL Extroacular Muscles: Present: EOMI Conjunctiva: Present: Normal Mouth: Present: Moist Mucous Membranes Neck: Present: Normal Range of Motion. No: Meningeal Signs, Paraspinal Tenderness Respiratory/Chest: Present: Clear to Auscultation, Good Air Exchange. No: Respiratory Distress, Accessory Muscle Use Cardiovascular: Present: Regular Rate and Rhythm, Normal S1, S2, Peripheal Pulse s Present Abdomen: Present: Tenderness (Mild suprapubic tenderness), Normal Bowel Sounds. No: Distention, Peritoneal Signs, Rebound, Guarding Genitourinary/Pelvic Exam: Present: Normal External Genitalia, Vaginal Discharge (Small amount of white/yellow discharge at cervix and in vaginal canal), Cervical os Closed. No: Vaginal Bleeding, Vaginal Lesions, Adenexal Tenderness, Odor Back: Present: Normal Inspection. No: CVA Tenderness, Midline Tenderness, Paraspinal Tenderness Upper Extremity: Present: Normal Inspection, Normal ROM, NORMAL PULSES, Neurovascularly Intact, Capillary Refill < 2s. No: Cyanosis, Edema, Temperature Abnormalties Lower Extremity: Present: Normal Inspection, NORMAL PULSES, Normal ROM, Neurovascularly Intact, Capillary Refill < 2 s. No: Edema, Temperature Abnormalties Neurological: Present: GCS=15, CN II-XII Intact, Speech Normal, Motor Func Grossly Intact, Normal Sensory Function, Gait Normal Skin: Present: Warm, Dry, Normal Color. No: Rashes Lymphatic: No: Cervical Adenopathy Psychiatric: Present: Alert, Oriented x 3, Normal Insight, Normal Concentration, Normal Affect, Normal Mood Medical Decision Making ED Course and Treatment: 12/17/18 22:37 Impression: 47 year old female complaining of dysuria, urinary frequency, suprapubic discomfort, and bilateral flank pain x 1 day. Plan: -- Urinalysis -- Chlamydia/GC RNA -- Urine culture -- Reassess and disposition Prior Visits: Notes and results from previous visits were reviewed. Progress Notes: Urinalysis reviewed, consistent with UTI. Will treat with Cipro x 1 week for possible pyelonephritis secondary to associated flank pain. Pt also agrees to receive STI prophylaxis for gonorrhea/chlamydia. Advised to followup with primary doctor within 2 days. Patient verbalizes understanding and states she will followup. Diagnostic testing results and plan of care discussed with patient. Strict instructions given regarding prescription use, importance of followup, and signs/symptoms to return to ER including worsening abdominal pain, fever, chills, N/V, or any other new/worsening symptoms. Pt verbalized understanding of discussion. Patient is A&Ox3, ambulating with steady gait, with vital signs stable for discharge. - Lab Interpretations Lab Results: Urine Color Yellow (YELLOW) 12/17/18 18:36 Urine Appearance Cloudy (CLEAR) 12/17/18 18:36 Urine pH 6.0 (4.7-8.0) 12/17/18 18:36 Ur Specific Ora 1.010 (1.005-1.035) 12/17/18 18:36 Urine Protein Negative mg/dL (<30 mg/dL) 12/17/18 18:36 Urine Glucose (UA) 500 mg/dL (NEGATIVE) H 12/17/18 18:36 Urine Ketones Negative mg/dL (NEGATIVE) 12/17/18 18:36 Urine Blood Large (NEGATIVE) H 12/17/18 18:36 Urine Nitrate Positive (NEGATIVE) H 12/17/18 18:36 Urine Bilirubin Negative (NEGATIVE) 12/17/18 18:36 Urine Urobilinogen 0.2 E.U./dL (<1 E.U./dL) 12/17/18 18:36 Ur Leukocyte Esterase Large Erickson/uL (NEGATIVE) H 12/17/18 18:36 Urine RBC 5 - 10 /hpf (0-2) H 12/17/18 18:36 Urine WBC 25 - 30 /hpf (0-6) H 12/17/18 18:36 Ur Epithelial Cells 1 - 3 /hpf (0-5) 12/17/18 18:36 Urine Bacteria Mod /hpf (NONE) 12/17/18 18:36 I have reviewed the lab results: Yes Interpretation: Abnormal lab values - Medication Orders Current Medication Orders: Discontinued Medications Azithromycin (Zithromax) 1,000 mg PO STAT STA; Protocol Stop: 12/17/18 21:01 Ceftriaxone Sodium (Rocephin) 250 mg IM STAT STA; Protocol Stop: 12/17/18 21:01 Ciprofloxacin (Cipro) 500 mg PO ONCE STA; Protocol Stop: 12/17/18 21:03 Phenazopyridine HCl (Pyridium) 200 mg PO STAT STA Stop: 12/17/18 21:01 - Scribe Statement The provider has reviewed the documentation as recorded by the [place] Judge Provider Scribe Attestation: All medical record entries made by the Scribe were at my direction and personally dictated by me. I have reviewed the chart and agree that the record accurately reflects my personal performance of the history, physical exam, medical decision making, and the department course for this patient. I have also personally directed, reviewed, and agree with the discharge instructions and disposition. Disposition/Present on Arrival - Present on Arrival Any Indicators Present on Arrival: No History of DVT/PE: No History of Uncontrolled Diabetes: No Urinary Catheter: No History of Decub. Ulcer: No History Surgical Site Infection Following: None - Disposition Have Diagnosis and Disposition been Completed?: Yes Diagnosis: UTI (urinary tract infection) Disposition: HOME/ ROUTINE Disposition Time: 21:00 Patient Plan: Discharge Condition: IMPROVED Discharge Instructions (ExitCare): Urinary Tract Infection, Adult (DC) Print Language: SYRIAC Additional Instructions: Cipro cada 12 horas sima 7 virk. Pyridium cada 8 horas segn sea necesario Seguimiento con mdico primario en 2 virk. Regrese a la abimbola de emergencias con cualquier sntoma nuevo o que empeore Prescriptions: Ciprofloxacin [Cipro] 500 mg PO Q12H #14 tab Phenazopyridine [Pyridium] 200 mg PO Q8H PRN #6 tab PRN Reason: dysuria Referrals: [facility] [place] [Outside] - Follow up with primary Vale Sanchez MD [Medical Doctor] - Follow up with primary Forms: [facility] (Nepali), WORK NOTE
[2018-12-17 21:35] VITALS: BP 124/77; PULSE 81; TEMP 98; O2SAT 99
== END 2018-12-17 21:35 | disposition home or self-care (01) ==
LOC: ED 18:13
DX: N39.0 Urinary tract infection, site not specified (principal); I10 Essential (primary) hypertension; E11.9 Type 2 diabetes mellitus without complications
CPT/HCPCS: 81001; 81025; 87086; 87181; 87491; 87591; 96372; 99283; J0696